=== PATIENT | female | born 1945 | race Caucasian/White ===

== ENCOUNTER 2023-02-19 12:43 | Outpatient (CLI) | payer MEDICARE, OTHER, SELFPAY | END 2023-02-19 12:44 | disposition home or self-care (01) | LOC: NFLDREF 02-20 08:50 | PROVIDERS: Visit Provider Registered Nurse | DX: R35.89 Other polyuria (principal); N39.0 Urinary tract infection, site not specified; N30.01 Acute cystitis with hematuria | CPT/HCPCS: 87086 ==